=== PATIENT | male | born 1970 | race Hispanic/Latino ===

== ENCOUNTER 2021-08-05 14:40 | Emergency (ER) | payer BC ==
[2021-08-05 15:20] LABS: #Eosinphils 0.1 10x3/uL (0.0-0.5); #Monocytes 0.7 10x3/uL (0.0-1.1); #Neutrophils 7.6 10x3/uL (1.5-8.4); %Basophils 0.3 % (0.0-2.0); %Eosinophils 0.8 % (0.0-6.0); %Lymphocytes 5.6 % (18.0-47.0); %Monocytes 7.3 % (0.0-10.0); %Neutrophils 85.7 % (40.0-75.0); Mean Corpuscular HGB CONC 34.8 g/dL (32.0-36.0); Mean Corpuscular Hemoglobin 29.7 pg (27.0-33.0); Mean Corpuscular Volume 85.4 fl (81.2-95.1); Mean Platelet Volume 10.3 fl (7.4-10.4); Platelet Count 189 10x3/uL (150-450); RBC Distribution Width 12.3 % (11.5-14.5); Red Blood Cell (RBC) Count 4.38 10x6/uL (4.32-5.72); White Blood Cell (WBC) Count 8.9 10x3/uL (3.5-10.5)
[2021-08-05] MEDS ORDERED: Acetaminophen 500 MG TAB ONE (15:25)
[2021-08-05 15:39] LABS: ALT (SGPT) 15 U/L (8-55); AST (SGOT) 26 U/L (5-34); Alkaline Phosphatase 65 U/L (40-110); Anion Gap 14 mmol/L (10-20); BUN (Urea Nitrogen) 18 mg/dL (8.4-25.7); Calc. Creatinine Clearance 0 mL/min (70-130); Calcium 9.3 mg/dL (7.8-10.44); Carbon Dioxide 23 mmol/L (22-29); Chloride 102 mmol/L (98-107); Globulin 3.9 g/dL (2.4-3.5); Glucose 164 mg/dL (70-105); Potassium 3.8 mmol/L (3.5-5.1); Protein, Total 7.9 g/dL (6.0-8.3); Sodium 135 mmol/L (136-145)
[2021-08-05 15:50] LABS: SARS-CoV-2 NAA Rapid Test Not Detected (NotDetected)
[2021-08-05 16:20] LABS: Bilirubin Neg (Negative); Blood, Urine Negative (Negative); Clarity Clear (Clear); Glucose, Urine (Dipstick) Normal (Negative); Ketone, Urine Negative (Negative); Leukocyte Negative (Negative); Nitrite Negative (Negative); Protein, Urine (Dipstick) 15 mg/dl (Neg-Trace); Specific Gravity, Urine 1.005 (1.002-1.036)
== END 2021-08-05 18:20 | disposition home or self-care (01) ==
LOC: CSHERS 14:40
DX: R50.82 Postprocedural fever (principal); K29.70 Gastritis, unspecified, without bleeding; E11.9 Type 2 diabetes mellitus without complications; I10 Essential (primary) hypertension; Z79.84 Long term (current) use of oral hypoglycemic drugs
CPT/HCPCS: 0240U; 36415; 71045; 74177; 80053; 81003; 83605; 85025; 87040; 87086; 93005; 93010; 94799

== ENCOUNTER 2025-04-30 09:02 | Outpatient (CLI) | payer BC | END 2025-04-30 09:03 | disposition home or self-care (01) | LOC: CSHULT 09:02 | PROVIDERS: ATTEND Internal Medicine Hematology & Oncology | DX: R22.41 Localized swelling, mass and lump, right lower limb (principal) | CPT/HCPCS: 76999 ==